=== PATIENT | male | born 1945 | race Caucasian/White ===

== ENCOUNTER 2017-01-22 09:31 | Emergency (ER) | payer OTHER ==
[~2017-01-22] VITALS: Ht 167.6 cm; Wt 121.3 kg
[2017-01-22 10:06] VITALS: BP 176/71; PULSE 49; RESP 16; TEMP 98.3; O2SAT 95
[2017-01-22] MEDS ORDERED: ASPI81CH7 CHEW (10:23)
[2017-01-22] MEDS ORDERED: AMIO200T PO (10:23)
[2017-01-22] MEDS ORDERED: LISI10TA3 PO (10:23)
[2017-01-22] MEDS ORDERED: COQ1400C PO (10:23)
[2017-01-22] MEDS ORDERED: OMEP20TA93 PO (10:23)
[2017-01-22] MEDS ORDERED: FLUT50SP EACH NARE (10:23)
[2017-01-22] MEDS ORDERED: COLC1CAP3 PO (10:23)
[2017-01-22] MEDS ORDERED: VITA1000 PO (10:23)
[2017-01-22] MEDS ORDERED: CARV12.52 PO (10:23)
[2017-01-22] MEDS ORDERED: ATOR80TA45 PO (10:23)
[2017-01-22] MEDS ORDERED: NITR1SUB3 SL (10:23)
[2017-01-22] MEDS ORDERED: APIX5TAB PO (10:23)
[2017-01-22] MEDS ORDERED: AZIT250T3 PO (10:46)
--- NOTE | 2017-01-22 10:46 | PD ---
HPI Chief Complaint: Cold / Flu Symptoms Time Seen by Provider: 10:33 Travel History International Travel<30 days: No Contact w/Intl Traveler<30days: No Traveled to known affect area: No History of Present Illness HPI 71 -year-old male with complaint of nasal congestion and cough for 5 weeks. He denies fever, chills, chest pain, shortness of breath. He was evaluated by his PCP several weeks ago and was told that this was an upper respiratory infection. The symptoms have persisted and he is here because he feels he needs antibiotics. Symptom severity is mild. No aggravating or alleviating factors. PFSH Past Medical History Hx Anticoagulant Therapy: Yes Cardiovascular Problems: Yes (htn on meds) High Cholesterol: Yes Cerebrovascular Accident: Yes (cva) Coronary Artery Disease: Yes Diabetes: No Diminished Hearing: No Hypertension: Yes Tetanus Vaccination: Unknown Past Surgical History Coronary Stent: Yes Social History Alcohol Use: No Tobacco Use: No (CIGARS) Substance Use: No Allergies-Medications (Allergen,Severity, Reaction): Coded Allergies: No Known Allergies (Unverified , 01/22/17) Reported Meds & Prescriptions Reported Meds & Active Scripts Active Reported Nitroglycerin SL (Nitroglycerin) 0.4 Mg Subl 0.4 Mg SL DIRECTED PRN ONE TABLET UNDER THE TONGUE NEEDED FOR CHEST PAIN, MAY REPEAT EVERY FIVE MINUTES FOR A TOTAL OF 3 DOSES OR CALL 911 IF NO RELIEF Omeprazole 20 Mg Tab 20 Mg PO DAILY Lisinopril 10 Mg Tab 10 Mg PO DAILY Fluticasone Nasal [place] 50 Mcg/Act Naspr 100 Mcg EACH NARE DAILY 50 mcg/spray Eliquis (Apixaban) 5 Mg Tab 5 Mg PO BID Colchicine 0.6 Mg Cap 0.6 Mg PO DIRECTED Coq10 Maximum Strength (Coenzyme Q10 (Ubidecarenone)) 400 Mg Cap 1 Cap PO DAILY Vitamin D-1000 (Cholecalciferol) 1,000 Unit Tab 2,000 Units PO DAILY Carvedilol 12.5 Mg Tab 12.5 Mg PO BID Atorvastatin (Atorvastatin Calcium) 80 Mg Tab 80 Mg PO HS Aspirin Children's (Aspirin) 81 Mg Chew 81 Mg CHEW DAILY Amiodarone (Amiodarone HCl) 200 Mg Tab 200 Mg PO DAILY Review of Systems Except as stated in HPI: all other systems reviewed are Neg General / Constitutional: No: Fever Physical Exam Narrative GENERAL: Alert well-appearing male in no distress. SKIN: Warm and dry. HEAD: Normocephalic. EYES: No scleral icterus. No injection or drainage. NECK: Supple, trachea midline. No JVD or lymphadenopathy. CARDIOVASCULAR: Regular rate and rhythm without murmurs, gallops, or rubs. RESPIRATORY: Breath sounds equal bilaterally. No accessory muscle use. GASTROINTESTINAL: Abdomen soft, non-tender, nondistended. Data Data Last Documented VS Vital Signs Date Time Temp Pulse Resp B/P (MAP) Pulse Ox O2 Delivery O2 Flow Rate FiO2 01/22/17 10:06 98.3 49 16 176/71 (106) 95 MDM Medical Decision Making Medical Screen Exam Complete: Yes Emergency Medical Condition: Yes Differential Diagnosis Bronchitis, pneumonia, influenza, URI Narrative Course 71 no male with cough for approximately the last 5 weeks. He reports his symptoms started out as nasal congestion and sore throat then developed into a cough. He denies fever or chills or shortness of breath. He reports the cough is persistent despite OTC medications. The patient is well-appearing. His lungs sounds are clear. His vital signs are stable. His heart rate was noted to be mildly bradycardic. He reports this is normal for him he is on a beta deborah. Patient will be treated with a Z-Lam and instructed to follow-up with his primary doctor. Diagnosis Primary Impression: Upper respiratory infection Qualified Codes: J06.9 - Acute upper respiratory infection, unspecified Referrals: Primary Care Physician Additional Instructions: Follow-up the primary doctor. Return to the emergency if he developed new or worsening symptoms. Scripts Azithromycin (Azithromycin) 250 Mg Tab 250 MG PO DIRECTED for Infection, #6 TAB 0 Refills Take 2 tabs (500 mg) on day 1 then 1 tab daily x 4 days. Prov: Lily Zepeda 01/22/17 Disposition: 01 DISCHARGE HOME Condition: Stable Lily Zepeda Jan 22, 2017 10:46
== END 2017-01-22 11:01 | disposition home or self-care (01) ==
LOC: PHEFT 09:31
DX: J06.9 Acute upper respiratory infection, unspecified (principal); R05 Cough; R00.1 Bradycardia, unspecified; I10 Essential (primary) hypertension; I25.10 Atherosclerotic heart disease of native coronary artery without angina pectoris; E78.00 Pure hypercholesterolemia, unspecified; Z79.01 Long term (current) use of anticoagulants
CPT/HCPCS: 99283